=== PATIENT | female | born 1970 | race Caucasian/White ===

== ENCOUNTER → 2017-01-04 | Outpatient (CLI) | payer BC | LOC: KOH-I 15:57 | DX: M81.0 Age-related osteoporosis without current pathological fracture (principal); M85.852 Other specified disorders of bone density and structure, left thigh | CPT/HCPCS: 77080 ==

== ENCOUNTER → 2017-01-14 | Outpatient (CLI) | payer BC | LOC: MAMO 07:09 | DX: Z12.31 Encounter for screening mammogram for malignant neoplasm of breast (principal) | CPT/HCPCS: G0202 ==

== ENCOUNTER → 2017-03-19 | Outpatient (CLI) | payer BC ==
[2017-03-19 13:01] LABS: HEMOGLOBIN 13.5 gm/dl (12.3-15.3); RED BLOOD COUNT 4.39 M/UL (4.00-5.10); WHITE BLOOD COUNT 7.1 K/UL (4.5-11.0)
[2017-03-19 13:17] LABS: BUN/CREATININE RATIO 10 (0-10)
== END ==
LOC: LAB 11:44
PROVIDERS: Internal Medicine
DX: D47.3 Essential (hemorrhagic) thrombocythemia (principal); E87.6 Hypokalemia; R23.8 Other skin changes
CPT/HCPCS: 36415; 80048; 85025